=== PATIENT | male | born 1975 | race Caucasian/White ===

== ENCOUNTER 2023-10-16 14:20 | Emergency (ER) | payer OTHER ==
[~2023-10-16] VITALS: Ht 188 cm; Wt 127.0 kg
[2023-10-16 14:38] VITALS: O2SAT 98
[2023-10-16] MEDS ORDERED: ONDA4TAB50 MT (19:35)
[2023-10-16] MEDS ORDERED: ACET-2708 MT (19:35)
[2023-10-16 19:54] VITALS: BP 144/88; PULSE 100; RESP 17; TEMP 98
== END 2023-10-16 19:55 | disposition home or self-care (01) ==
LOC: ER 14:20
DX: R51.9 Headache, unspecified (principal); E11.9 Type 2 diabetes mellitus without complications; W18.30XA Fall on same level, unspecified, initial encounter; Y93.89 Activity, other specified; Y92.89 Other specified places as the place of occurrence of the external cause; Y99.8 Other external cause status
CPT/HCPCS: 71045; 72070; 72100; 99291